=== PATIENT | female | born 1955 | race Caucasian/White ===

== ENCOUNTER 2017-11-18 14:55 | Emergency (ER) | payer MEDICARE, MEDICAID ==
[~2017-11-18] VITALS: Ht 160 cm; Wt 65.0 kg
[~2017-11-18 14:55] MED LIST: ALPRAZOLAM0.5 MG PO; AMANTADINE100 MG PO; AUGMENTIN875 MG OR; BACTRIM DS1 TAB OR; CARPAL TUNNEL WRIST XX; CELEXA20 M1 PO; CEPHALEXIN500 MG OR; CIPROFLOXACIN250 MG PO; CIPROFLOXACN250 MG PO; CORTISPORIN OTI10 ML AD; CYCLOBENZAPR10 MG PO; DILAUDID2 MG PO; FENTANYL25 MCG/HR TD; FLEXERIL10 MG PO; FLOXIN OTIC OT; FLOXIN OTIC OTIC; FLUARIX QUADRIV1 IN2 IM; FLUZONE SPLT1 M1 IM; HYDROCO/APAP1 T10 OR; IMODIUM OR; LORTAB 10 OR; LORTAB 5 OR; MEDDOSEPAK PO; MELOXICAM7.5 MG PO; NAPROSYN375 MG PO; NAPROSYN500 MG OR; NEURONTIN300 MG PO; NEXIUM20 MG PO; NO MEDS; OMEPRAZOLE20 MG PO; OXYCOD/APAP1 TA3 PO; PAXIL20 MG OR; PERCOCET1 TA2 PO; PERCOCET1 TA3 PO; PREVACID30 M2 OR; SOMA350 MG PO; ZPAK PO
[2017-11-18 15:40] LABS: HEMATOCRIT 39.4 % (37.0-47.0); HEMOGLOBIN 13.4 g/dl (12.0-16.0); IMMATURE GRANULOCYTES 0.3 % (0.0-1.0); MEAN CELL VOLUME 88.7 fL CALC (80.0-100.0); MEAN CORPUSCULAR HGB 30.2 pG CALC (26.0-32.0); NEUT# 3.31 thou/uL (2.00-7.15); RED BLOOD COUNT 4.44 mill/uL (4.20-5.60); RED CELL DISTRI WIDTH 13.2 % (11.5-15.5)
[2017-11-18 16:08] LABS: URINE BILIRUBIN - DIPSTICK NEGATIVE (NEGATIVE); URINE BLOOD DIPSTICK SMALL (NEGATIVE); URINE COLOR YELLOW; URINE GLUCOSE - DIPSTICK NEGATIVE (NEGATIVE); URINE KETONE NEGATIVE (NEGATIVE); URINE LEUK ESTERASE TRACE (NEGATIVE); URINE PROTEIN - DIPSTICK NEGATIVE (NEG-TRACE); URINE SPECIFIC GRAVITY >=1.030; URINE UROBILINOGEN - DIPSTICK 0.2 E.U./dL (0.2)
[2017-11-18 16:14] LABS: URINE CLARITY SL CLOUDY; URINE NITRITE - DIPSTICK POSITIVE (Negative)
[2017-11-18 16:31] LABS: ALBUMIN 4.2 g/dL (3.2-5.0); ALKALINE PHOSPHATASE 98 u/l (38-126); BILIRUBIN, TOTAL 0.5 mg/dL (0.0-1.4); BUN 11 mg/dL (7-17); BUN/CREATININE RATIO 15 (12-20 (CALC)); CARBON DIOXIDE 25 mmol/l (22-30); CHLORIDE 106 mmol/l (95-108); CREATININE 0.8 mg/dL (0.5-1.0); GFR > 60 ML/MIN (>=60 (CALC)); GFR FOR AFR.AMER. > 60 ML/MIN (>=60 (CALC)); SGPT/ALT 29 u/l (9-52); SODIUM 140 mmol/l (137-146); TOTAL PROTEIN 7.6 g/dL (6.3-8.2)
[2017-11-18 16:34] LABS: ANION GAP 13 (6-22 (CALC)); POTASSIUM 3.5 mmol/l (3.5-5.1); SGOT/AST 36 u/l (14-36)
[2017-11-18 16:36] LABS: URINE BACTERIA MANY hpf; URINE SQUAMOUS EPITHELIAL CELL FEW EPI/hpf (0-FEW)
[2017-11-18 16:42] LABS: MYOGLOBIN 34 ng/mL (0 - 62)
[2017-11-18 17:03] VITALS: BP 128/77
[2017-11-18] MEDS ORDERED: KEFLEX500 MG PO (17:11)
== END 2017-11-18 17:19 | disposition home or self-care (01) ==
LOC: ED 14:55
PROVIDERS: Emergency Medicine
DX: S06.0X0A Concussion without loss of consciousness, initial encounter (principal); W22.8XXA Striking against or struck by other objects, initial encounter; Y93.89 Activity, other specified; Y92.538 Other ambulatory health services establishments as the place of occurrence of the external cause; Z86.73 Personal history of transient ischemic attack (TIA), and cerebral infarction without residual deficits; Z85.9 Personal history of malignant neoplasm, unspecified; B96.20 Unspecified Escherichia coli [E. coli] as the cause of diseases classified elsewhere

== ENCOUNTER 2021-02-08 13:02 | Emergency (ER) | payer MEDICARE, MEDICAID ==
[~2021-02-08] VITALS: Ht 160 cm; Wt 77.3 kg
[~2021-02-08 13:02] MED LIST changes: +KEFLEX500 MG PO
[2021-02-08 13:53] LABS: HEMATOCRIT 44.4 % (37.0-47.0); HEMOGLOBIN 14.5 g/dl (12.0-16.0); IMMATURE GRANULOCYTES 0.1 % (0.0-5.0); MEAN CELL VOLUME 87.1 fL CALC (80.0-100.0); MEAN CORPUSCULAR HGB 28.4 pG CALC (26.0-32.0); MEAN CORPUSCULAR HGB CONC 32.7 g/dL CAL (32.0-36.0); NEUT# 2.87 thou/uL (2.00-7.15); RED BLOOD COUNT 5.1 mill/uL (4.20-5.60); RED CELL DISTRI WIDTH 13.4 % (11.5-15.5)
[2021-02-08 14:04] LABS: ALBUMIN 4.6 g/dL (3.2-5.0); ALKALINE PHOSPHATASE 112 u/l (38-126); ANION GAP 12 (6-22 (CALC)); BUN 18 mg/dL (8-23); BUN/CREATININE RATIO 21 (12-20 (CALC)); CARBON DIOXIDE 27 mmol/l (22-30); CHLORIDE 102 mmol/l (95-108); CREATININE 0.8 mg/dL (0.5-1.0); GFR > 60 ML/MIN (>=60 (CALC)); GFR FOR AFR.AMER. > 60 ML/MIN (>=60 (CALC)); POTASSIUM 4.3 mmol/l (3.5-5.1); SGOT/AST 28 u/l (9-36); SODIUM 137 mmol/l (137-146); TOTAL PROTEIN 8.3 g/dL (6.3-8.2)
[2021-02-08 14:06] LABS: BILIRUBIN, TOTAL 0.7 mg/dL (0.0-1.4)
[2021-02-08 14:15] LABS: ACT PARTIAL THROMBO TIME 24.7 SECONDS (20.0-32.5); INTERNATIONAL NORMALIZED RATIO 0.9 RATIO (0.7-1.3); PROTHROMBIN TIME 9.6 SECONDS (9.0-12.5)
[2021-02-08 18:30] VITALS: BP 154/81
== END 2021-02-08 18:40 | disposition short-term general hospital (02) ==
LOC: ED 13:02
PROVIDERS: Physician Assistant Surgical
DX: R07.9 Chest pain, unspecified (principal); F17.200 Nicotine dependence, unspecified, uncomplicated; I10 Essential (primary) hypertension; Z82.49 Family history of ischemic heart disease and other diseases of the circulatory system; Z86.73 Personal history of transient ischemic attack (TIA), and cerebral infarction without residual deficits

== ENCOUNTER 2021-05-22 14:30 | Emergency (ER) | payer MEDICARE, MEDICAID ==
[~2021-05-22] VITALS: Ht 160 cm; Wt 80.0 kg
[2021-05-22 15:30] VITALS: BP 149/78
== END 2021-05-22 18:30 | disposition home or self-care (01) ==
LOC: ED 14:30
DX: U07.1 COVID-19 (principal); F17.200 Nicotine dependence, unspecified, uncomplicated; Z86.73 Personal history of transient ischemic attack (TIA), and cerebral infarction without residual deficits

== ENCOUNTER 2021-10-05 11:13 | Emergency (ER) | payer MEDICARE, MEDICAID ==
[~2021-10-05] VITALS: Ht 160 cm; Wt 72.5 kg
[2021-10-05 11:23] VITALS: BP 126/75
[2021-10-05 11:31] VITALS: BP 150/83
[2021-10-05 12:01] VITALS: BP 145/75
[2021-10-05] MEDS ORDERED: CIPROFLOXACN500 MG PO (12:17)
[2021-10-05] MEDS ORDERED: CORTISPORIN OTI10 M2 AD (12:17)
[2021-10-05 12:22] VITALS: BP 145/75
== END 2021-10-05 12:29 | disposition home or self-care (01) ==
LOC: ED 11:13
DX: H60.91 Unspecified otitis externa, right ear (principal); E03.9 Hypothyroidism, unspecified; F17.290 Nicotine dependence, other tobacco product, uncomplicated; Z86.73 Personal history of transient ischemic attack (TIA), and cerebral infarction without residual deficits

== ENCOUNTER 2022-03-29 08:52 | Emergency (ER) | payer MEDICARE, MEDICAID ==
[~2022-03-29] VITALS: Ht 160 cm; Wt 68.2 kg
[~2022-03-29 08:52] MED LIST changes: +CIPROFLOXACN500 MG PO; +CORTISPORIN OTI10 M2 AD
[2022-03-29 09:08] VITALS: BP 164/73
[2022-03-29 09:15] VITALS: BP 146/97
[2022-03-29] MEDS ORDERED: MELOXICAM7.5 MG PO (09:20)
[2022-03-29] MEDS ORDERED: LEVOTHYROXIN75 MC1 PO (09:21)
[2022-03-29 09:30] VITALS: BP 114/70
[2022-03-29 10:00] VITALS: BP 127/70
[2022-03-29 10:15] VITALS: BP 125/75
[2022-03-29] MEDS ORDERED: ZPAK PO (10:18)
== END 2022-03-29 10:21 | disposition home or self-care (01) ==
LOC: ED 08:52
DX: J06.9 Acute upper respiratory infection, unspecified (principal); E03.9 Hypothyroidism, unspecified; Z86.73 Personal history of transient ischemic attack (TIA), and cerebral infarction without residual deficits; Z20.822 Contact with and (suspected) exposure to COVID-19

== ENCOUNTER 2022-05-29 19:02 | Emergency (ER) | payer MEDICARE, MEDICAID ==
[~2022-05-29] VITALS: Ht 160 cm; Wt 72.5 kg
[2022-05-29] VITALS (9 sets, daily range): BP systolic 131–163; BP diastolic 62–87
[~2022-05-29 19:02] MED LIST changes: +LEVOTHYROXIN75 MC1 PO
[2022-05-29 20:47] LABS: BASO% 0.7 % (0-3); EOS% 1.2 % (0-8); HEMOGLOBIN 13.5 g/dl (12.0-16.0); IMMATURE GRANULOCYTES 0.1 % (0.0-5.0); LYMPH% 60.5 % (15-41); MEAN CELL VOLUME 86.6 fL CALC (80.0-100.0); MEAN CORPUSCULAR HGB 29.2 pG CALC (26.0-32.0); MEAN CORPUSCULAR HGB CONC 33.8 g/dL CAL (32.0-36.0); MONO% 9.5 % (2-13); NEUT# 2.03 thou/uL (2.00-7.15); RED BLOOD COUNT 4.62 mill/uL (4.20-5.60); RED CELL DISTRI WIDTH 14.3 % (11.5-15.5); URINE BILIRUBIN - DIPSTICK NEGATIVE (NEGATIVE); URINE BLOOD DIPSTICK TRACE-INTACT (NEGATIVE); URINE COLOR YELLOW; URINE GLUCOSE - DIPSTICK NEGATIVE (NEGATIVE); URINE KETONE NEGATIVE (NEGATIVE); URINE LEUK ESTERASE NEGATIVE (NEGATIVE); URINE PROTEIN - DIPSTICK NEGATIVE (NEG-TRACE); URINE SPECIFIC GRAVITY 1.025; URINE UROBILINOGEN - DIPSTICK 0.2 E.U./dL (0.2)
[2022-05-29 20:50] LABS: URINE NITRITE - DIPSTICK NEGATIVE (Negative)
[2022-05-29 20:56] LABS: ALBUMIN 4.4 g/dL (3.2-5.0); ALKALINE PHOSPHATASE 94 u/l (38-126); AMYLASE 87 u/l (30-110); ANION GAP 11 (6-22 (CALC)); BILIRUBIN, TOTAL 0.5 mg/dL (0.0-1.4); BUN 20 mg/dL (8-23); BUN/CREATININE RATIO 23 (12-20 (CALC)); CARBON DIOXIDE 28 mmol/l (22-30); CHLORIDE 101 mmol/l (95-108); CREATININE 0.9 mg/dL (0.5-1.0); GFR FOR AFR.AMER. > 60 ML/MIN (>=60 (CALC)); GFR OTHER RACES > 60 ML/MIN (>=60 (CALC)); LIPASE 123 u/l (23-300); POTASSIUM 4.2 mmol/l (3.5-5.1); SGOT/AST 33 u/l (9-36); SODIUM 135 mmol/l (137-146); TOTAL PROTEIN 7.7 g/dL (6.3-8.2)
[2022-05-29] MEDS ORDERED: ULTRAM50 MG PO (22:17)
== END 2022-05-29 22:49 | disposition home or self-care (01) ==
LOC: ED 19:02
PROVIDERS: Emergency Medicine
DX: R10.32 Left lower quadrant pain (principal); E03.9 Hypothyroidism, unspecified; Z86.73 Personal history of transient ischemic attack (TIA), and cerebral infarction without residual deficits; Z87.442 Personal history of urinary calculi
CPT/HCPCS: Q9967

== ENCOUNTER 2024-04-02 07:34 | Day surgery (SDC) | payer MEDICARE, MEDICAID ==
[~2024-04-02] VITALS: Ht 160 cm; Wt 72.6 kg
[~2024-04-02 07:34] MED LIST changes: +GABAPENTIN100 MG PO; +IBUPROFEN200 MG PO; +LEVOTHYROXIN50 MCG PO; +ULTRAM50 MG PO
[2024-04-02] MEDS ORDERED: LACTATED RINGER'S 1,000 ML IV ONE (07:39)
[2024-04-02] MEDS ORDERED: FAMOTIDINE 10MG/ML 2ML SDV IV ONE (07:59)
[2024-04-02 10:14] VITALS: BP 122/92
[2024-04-02] MEDS ORDERED: GLYCOPYRROLATE 0.2 MG/ML IV ONE (14:14)
[2024-04-02] MEDS ORDERED: PROPOFOL 200 MG/20 ML VIAL IV ONE (14:14)
[2024-04-02] MEDS ORDERED: LIDOCAINE HCL 2% 2ML SDV IV ONE (14:14)
== END 2024-04-02 10:25 | disposition home or self-care (01) ==
LOC: ENDO 07:34 → ORM 08:00 → ENDO 10:05 → ORM 10:40 → ENDO 10:55
PROVIDERS: ATTEND Surgery
PROC: 0DJD8ZZ Inspection of Lower Intestinal Tract, Via Natural or Artificial Opening Endoscopic (ICD-10-PCS; principal; 2024-04-02)
DX: Z12.11 Encounter for screening for malignant neoplasm of colon (principal); K57.30 Diverticulosis of large intestine without perforation or abscess without bleeding; K64.8 Other hemorrhoids; Q43.8 Other specified congenital malformations of intestine; F17.290 Nicotine dependence, other tobacco product, uncomplicated; Z86.0100 Personal history of colon polyps, unspecified